=== PATIENT | male | born 1985 | race Caucasian/White ===

== ENCOUNTER 2018-05-22 17:16 | Emergency (ER) | payer MEDICAID ==
[2018-05-22 17:31] VITALS: BP 149/96
[2018-05-22] MEDS ORDERED: FLUORESCEIN SODIUM 1 MG STRIP OP ONE (17:36)
[2018-05-22] MEDS ORDERED: PROPARACAINE 0.5% 15 ML OPHT DROP ONE (17:36)
[2018-05-22] MEDS ORDERED: PROPARACAINE 0.5% 15 ML OPHT DROP LEFTEYE ONE (17:38)
[2018-05-22] MEDS ORDERED: HYDROCOD/APAP 5/325 PREPACK#6 BTL TAKEHOME ONE (18:07)
[2018-05-22] MEDS ORDERED: ERYTHROMYCIN 0.5% 1 GM OPHT.OINT LEFTEYE ONE (18:08)
--- NOTE | 2018-05-22 18:11 | EDPHY ---
General - History Smoking Status: Current some day smoker Time Seen by Provider: 05/22/18 17:43 Narrative: CLINICAL IMPRESSION: Left corneal abrasion ASSESSMENT/PLAN: 32-year-old male presents to the emergency department with acute left eye pain after a small branch blue towards his eye while he was walking today. Slit- lamp exam shows corneal abrasion at the 12:00 position with no corresponding foreign body, corneal ulcer, Alex sign, hyphema, or evidence of globe injury. Patient was given pain medication, started on erythromycin ointment, advised to follow up with Ophthalmology. Warning signs return to ED sooner alignment discharge. DIFFERENTIAL DX: Differential includes but not limited to conjunctivitis, corneal abrasion, foreign body, keratitis, iritis, acute angle-closure glaucoma, severe uveitis, acute loss of vision (from CRAO, temporal arteritis, retinal detachment or optic neuritis), significant corneal ulceration or other ophthalmologic emergency. ED PROCEDURES: See lab and/or imaging results below Eye exam Visual miranda = WNL. EOMI. PERRLA. Slit lamp no eyelid edema, blepharitis, or cellulitis. No conjunctival hemorrhages, hyphema, or hypopyon. Positive left corneal abrasions at 12:00 p.m. No ulcers under fluorescein. Negative Alex test. No cell and flare. No FB's with eyelid eversion. Funduscopic exam shows no papilledema, retinal hemorrhages or cotton wool spots observed (w/out eye dilated). ED COURSE: CHIEF COMPLAINT: Left eye pain HPI: 32-year-old male presents to the emergency department with left eye pain. Patient states he was walking today when a small branch hit his left eye. He rinsed his eye with water but continues to feel a foreign body sensation. No reported vision change, headache. No prior eye surgery. He wears glasses. He reports tetanus is up-to-date PAST MEDICAL HISTORY: None reported See triage summary and nurse notes for addition applicable history Pertinent Past Surgical History: None reported Family History: Noncontributory Social History: Otherwise healthy REVIEW OF SYSTEMS: A full 10 point review of systems was negative except for those mentioned in HPI. PHYSICAL EXAM: General Appearance: Alert, oriented, appropriate, cooperative, NAD, well hydrated, non-toxic appearing, VSS, no hypoxia. Eyes: PERRLA, no acute vision change, nystagmus, swelling, discharge, pain or photosensitivity. Conjunctiva pink, no pallor or injection. CI exam above Skin: Warm, dry, no rashes, no nodules on palpation. MEDICAL DECISION MAKING: Patient was seen independently. Secondary supervising physician at time of evaluation was: Nasir . Diagnosis: Left corneal abrasion. New, requires workup Summary: See Assessment and Plan for summary of ED visit Patient Progress: Improved. (Hiro Negro) Medical Decision Making: I did not see this patient while he was in the emergency department. However his care was discussed with the PA while the patient was in the department. I agree with treatment plan and management (Jaret Best) - Objective Vital Signs: Initial Vital Signs Temperature (C) 36.6 C 05/22/18 17:27 Heart Rate 83 05/22/18 17:27 Respiratory Rate 18 05/22/18 17:27 Blood Pressure 149/96 H 05/22/18 17:27 O2 Sat (%) 97 05/22/18 17:27 O2 Delivery Mode Room Air Allergies/Adverse Reactions: No Known Allergies Allergy (Unverified 05/22/18 17:31) Home Medications: Medication Instructions Recorded Gabapentin 05/22/18 Hydrocodone/APAP 5/325 [Haslet 1 - 2 tab PO Q4H PRN #10 tab 05/22/18 5/325 (*)] Wellbutrin Sr 05/22/18 traZODone 05/22/18 Medications Given: Discontinued Medications Hydrocodone Bitart/Acetaminophen (Haslet 5/325mg Prepack#6) 1 btl TAKEHOME EDNOW ONE Stop: 05/22/18 18:08 Last Admin: 05/22/18 18:15 Dose: 1 btl Erythromycin (Erythromycin 0.5%) 1 jennifer LEFTEYE ONCE ONE Stop: 05/22/18 18:09 Last Admin: 05/22/18 18:15 Dose: 1 jennifer Proparacaine HCl (Alcaine 0.5%) 1 drops LEFTEYE ONCE ONE Stop: 05/22/18 17:39 Last Admin: 05/22/18 17:39 Dose: 1 drop Departure - Departure Disposition: Home, Routine, Self-Care Clinical Impression: Left cornea abrasion Condition: Good Instructions: Hydrocodone/Acetaminophen (By mouth), Erythromycin (Into the eye) , Corneal Abrasion (ED) Additional Instructions: DISCHARGE INSTRUCTIONS FROM YOUR DOCTOR Thank you for visiting our emergency department today. Please keep in mind that discharge from the emergency department does not mean that there is nothing wrong - it simply means that we have not identified an emergency condition that requires further evaluation or treatment in the hospital. You should always plan to follow up with primary care for re-evaluation of your condition in the next 2-3 days. If you have been referred to a specialist, please call as soon as possible (today or tomorrow) to schedule your follow up appointment at the appropriate time. [YOU HAVE AN ABRASION TO THE LEFT CORNEA. WE DO NOT SEE ANY EVIDENCE OF GLOBE INJURY OR FOREIGN BODY. A DOSE OF YOU ERYTHROMYCIN OINTMENT WAS GIVEN IN THE ER. PLEASE IN STILL OINTMENT TO THE LEFT EYE 3 TIMES DAILY FOR 3 DAYS. PLEASE MAKE A FOLLOW-UP APPOINTMENT WITH OPHTHALMOLOGY FOR RE-EVALUATION. PLEASE RETURN TO THE EMERGENCY DEPARTMENT IMMEDIATELY FOR WORSENING VISION, INCREASED PAIN, LOSS OF VISION, FEVER, REDNESS AROUND THE EYE, SEVERE HEADACHES, OR ANY OTHER CONCERN. ] People present with illnesses and injuries in different ways, and it is always possible that we have missed something. You may always return for re-evaluation if symptoms worsen or if they are not improving or if you develop new/different symptoms. Again, thank you for choosing our emergency department. We hope that you feel better. Referrals: Viviane Baron MD [Medical Doctor] - 1-2 days without fail Prescriptions: Hydrocodone/APAP 5/325 [Haslet 5/325 (*)] 1 - 2 tab PO Q4H PRN #10 tab PRN Reason: Pain, Moderate
== END 2018-05-22 18:22 | disposition home or self-care (01) ==
DX: S05.02XA Injury of conjunctiva and corneal abrasion without foreign body, left eye, initial encounter (principal); W22.8XXA Striking against or struck by other objects, initial encounter; Y93.01 Activity, walking, marching and hiking